=== PATIENT | male | born 1960 | race Caucasian/White ===

== ENCOUNTER 2020-08-27 23:48 | Emergency (ER) | payer OTHER ==
[2020-08-28 03:19] LABS: HEMOGLOBIN 13.5 gm/dl (14.0-17.5); RED BLOOD COUNT 4.4 M/UL (4.20-5.50); WHITE BLOOD COUNT 6.2 K/UL (4.5-11.0)
[2020-08-28 03:35] LABS: BUN/CREATININE RATIO 16 (0-10)
[2020-08-28] MEDS ORDERED: LASIX20 MG PO (04:17)
== END 2020-08-28 04:39 | disposition home or self-care (01) ==
LOC: ER1 23:48
PROVIDERS: Family Medicine
DX: R60.0 Localized edema (principal); G20 Parkinson's disease; M06.9 Rheumatoid arthritis, unspecified; Z79.01 Long term (current) use of anticoagulants; Z79.899 Other long term (current) drug therapy
CPT/HCPCS: 71045; 80053; 82550; 82553; 83874; 83880; 84439; 84443; 84484; 85025; 93005; 99285

== ENCOUNTER → 2020-10-21 | Outpatient (CLI) | payer OTHER ==
[~2020-10-21] MED LIST: LASIX20 MG PO
== END ==
LOC: HEART CORB 14:00
DX: I95.1 Orthostatic hypotension (principal); R60.0 Localized edema; R06.02 Shortness of breath
CPT/HCPCS: 93306